=== PATIENT | male | born 1990 | race Two or more races ===

== ENCOUNTER 2017-06-18 20:31 | Emergency (ER) | payer MEDICAID, OTHER, SELFPAY ==
[~2017-06-18] VITALS: Ht 154.9 cm; Wt 53.3 kg
[2017-06-18] MEDS ORDERED: KETOROLAC 30 MG/1 ML IM ONE (22:00)
[2017-06-18] MEDS ORDERED: PROCHLORPERAZINE 5 MG/ML, 2ML IM ONE (22:00)
[2017-06-18] MEDS ORDERED: DIPHENHYDRAMINE 25 MG CAPSULE PO ONE (22:00)
[2017-06-18 22:21] LABS: BASOPHILS # (AUTO) 0.03 x10^3/uL (0-0.1); BASOPHILS % (AUTO) 0 % (0-1); EOSINOPHILS # (AUTO) 0.25 x10^3/uL (0-0.4); EOSINOPHILS % (AUTO) 2 % (1-7); LYMPHOCYTES # (AUTO) 2.33 x10^3/uL (1-3.4); LYMPHOCYTES % (AUTO) 23 % (22-44); MD NO; MONOCYTES % (AUTO) 6 % (2-9); NEUTROPHILS # (AUTO) 7.13 x10^3/uL (1.8-6.8); NEUTROPHILS % (AUTO) 69 % (42-75); PLATELET COUNT 319 x10^3/uL (130-400); RED BLOOD COUNT 4.55 x10^6/uL (4.38-5.82); RED CELL DISTRIBUTION WIDTH 12.4 % (9.4-14.8)
[2017-06-18] MEDS ORDERED: PROCHLORPERAZINE 5 MG/ML, 2ML ONE (22:29)
[2017-06-18] MEDS ORDERED: DIPHENHYDRAMINE 25 MG CAPSULE ONE (22:30)
[2017-06-18] MEDS ORDERED: KETOROLAC 30 MG/1 ML ONE (22:30)
[2017-06-18 22:34] LABS: ANION GAP 5 mmol/L (5-15); CALCIUM 8.6 mg/dL (8.5-10.1); CHLORIDE 104 mmol/L (98-107)
[2017-06-18 22:35] LABS: CREATININE 0.93 mg/dL (0.7-1.3)
[2017-06-18 23:33] VITALS: BP 119/69
== END 2017-06-18 23:35 | disposition home or self-care (01) ==
LOC: ED 23:07
DX: M79.1 Myalgia (principal); R05 Cough; G44.219 Episodic tension-type headache, not intractable; G43.909 Migraine, unspecified, not intractable, without status migrainosus; Z88.0 Allergy status to penicillin
CPT/HCPCS: 36415; 71046; 80048; 85025; 96372; 99285; J0780; J1885; Q0163